=== PATIENT | female | born 1995 | race African-American/Black ===

== ENCOUNTER 2021-12-05 15:11 | Emergency (ER) | payer OTHER ==
[~2021-12-05] VITALS: Ht 177.8 cm; Wt 127.0 kg
--- NOTE | 2021-12-05 16:14 | EKG ---
[address] [place] [employer] [address] ELECTROCARDIOGRAM REPORT Name: WALTER OLSEN Room #: PRE [facility]..#: [id number] Admission: Attend Phys: Discharge: Date of : [birth year] Report #: [id number] [facility] ED Test Date: 2021-12-05 Test Time: 15:29:10 Pat Name: WALTER OLSEN Department: Room: Gender: F [employer]: : 1995 Requested By: James Paulson Order Number: [id number] MD: James Bradley Measurements Intervals [place] Rate: 106 P: 36 MO: 190 QRS: -7 QRSD: 77 T: -21 QT: 371 QTc: 493 Interpretive Statements Sinus tachycardia Probable left atrial enlargement Low voltage, precordial leads Borderline T abnormalities, diffuse leads Prolonged QT interval No previous ECG available for comparison Electronically Signed On 12-05-2021 16:14:27 WARDSPERSON by James Bradley [email or web address] <ELECTRONICALLY SIGNED> By: James Bradley MD, [facility] 12/05/21 1614 1529 1529 James Bradley MD, FACC /EPI
[2021-12-05 16:27] LABS: CALCIUM 9.2 mg/dL (8.5-10.1); CREATININE 0.9 mg/dL (0.6-1.0); POTASSIUM 3.9 mmol/L (3.5-5.1)
[2021-12-05 16:33] LABS: TOTAL BILIRUBIN 0.6 mg/dL (0.2-1.0); TOTAL PROTEIN 8.1 g/dL (6.4-8.2)
[2021-12-05 17:41] LABS: ABSOLUTE NEUTROPHILS 4.8 thou/uL (1.4-8.2); BASOPHILS 0.5 % (0.0-2.0); EOSINOPHILS 0.2 % (0.0-3.0); HEMATOCRIT 31.2 % (37.0-47.0); HEMOGLOBIN 9.6 gm/dL (12.0-15.0); LYMPHOCYTES 16.3 % (24.0-44.0); MCH 22.5 pg (26.0-34.0); MCHC 30.8 g/dL (28.0-37.0); MCV 72.9 fL (80.0-100.0); PLATELET COUNT 393 thou/uL (150-400); RBC 4.28 mil/uL (4.20-5.00); WBC 6.5 thou/uL (4.0-11.0)
[2021-12-05] MEDS ORDERED: ZPAK PO (18:56)
[2021-12-05] MEDS ORDERED: ENTRESTO 24 MG1 EACH PO (18:56)
[2021-12-05 18:59] VITALS: BP 115/80
== END 2021-12-05 19:00 | disposition home or self-care (01) ==
LOC: ER 15:11
PROVIDERS: Emergency Medicine; Nurse Practitioner
DX: J18.9 Pneumonia, unspecified organism (principal); Z20.822 Contact with and (suspected) exposure to COVID-19; I50.9 Heart failure, unspecified; I11.0 Hypertensive heart disease with heart failure; E78.5 Hyperlipidemia, unspecified

== ENCOUNTER 2021-12-06 02:47 | Emergency (ER) | payer OTHER ==
[~2021-12-06] VITALS: Ht 180.3 cm; Wt 140.6 kg
[~2021-12-06 02:47] MED LIST: ENTRESTO 24 MG1 EACH PO; ZPAK PO
[2021-12-06 03:53] LABS: HEMOGLOBIN 9.6 gm/dL (12.0-15.0)
[2021-12-06 03:53] LABS: URINE BILIRUBIN NEGATIVE (Negative); URINE BLOOD 3+ (Negative); URINE CLARITY SL CLOUDY; URINE COLOR YELLOW; URINE GLUCOSE-RANDOM* NEGATIVE (Negative); URINE KETONES NEGATIVE (Negative); URINE LEUKOCYTES-REFLEX TRACE (Negative); URINE NITRITE-REFLEX NEGATIVE (Negative); URINE PROTEIN (DIPSTICK) TRACE (Negative)
[2021-12-06 03:55] LABS: ABSOLUTE NEUTROPHILS 6.4 thou/uL (1.4-8.2); BASOPHILS 0.5 % (0.0-2.0); EOSINOPHILS 0.2 % (0.0-3.0); HEMATOCRIT 30.8 % (37.0-47.0); LYMPHOCYTES 17.2 % (24.0-44.0); MCH 22.7 pg (26.0-34.0); PLATELET COUNT 357 thou/uL (150-400); POLYS 73.1 % (36.0-66.0); RBC 4.22 mil/uL (4.20-5.00); RDW 16.1 % (10.5-14.5); WBC 9.7 thou/uL (4.0-11.0)
[2021-12-06 04:03] LABS: CALCIUM 9.1 mg/dL (8.5-10.1); CREATININE 0.9 mg/dL (0.6-1.0); POTASSIUM 4.3 mmol/L (3.5-5.1)
[2021-12-06 04:13] LABS: TOTAL BILIRUBIN 0.6 mg/dL (0.2-1.0); TOTAL PROTEIN 8.1 g/dL (6.4-8.2)
[2021-12-06 04:17] LABS: BACTERIA-REFLEX 1-9 Few /HPF (None Seen); CASTS None Seen /LPF (None Seen); CRYSTALS None Seen /LPF (None Seen); MUCUS 0-3 Light strn/LPF (None Seen); SQUAMOUS 4-10 Moderate /LPF (0-3); URINE RBC >20 Many /HPF (NONE SEEN); URINE WBC-REFLEX 0-5 Rare /HPF (0-5)
[2021-12-06 05:37] VITALS: BP 133/68
== END 2021-12-06 05:45 | disposition home or self-care (01) ==
LOC: ER 02:47
PROVIDERS: Emergency Medicine
DX: R10.12 Left upper quadrant pain (principal); I11.0 Hypertensive heart disease with heart failure; I50.9 Heart failure, unspecified; E78.5 Hyperlipidemia, unspecified; Z79.899 Other long term (current) drug therapy